=== PATIENT | female | born 1975 | race Caucasian/White ===

== ENCOUNTER 2016-10-30 00:54 | Emergency (ER) | payer SELFPAY | END 2016-10-30 03:35 | disposition left against medical advice (07) | LOC: ER1 00:54 | DX: Z53.21 Procedure and treatment not carried out due to patient leaving prior to being seen by health care provider (principal) ==

== ENCOUNTER 2020-12-10 16:11 | Emergency (ER) | payer OTHER ==
[~2020-12-10 16:11] MED LIST: BENTYL 20MG TAB20 MG PO; IBUPROFEN600 MG PO; KEFLEX500 MG PO; PREDNISONE 20 M20 MG PO; ROBITUSSIN AC480 ML PO; VENTOLIN HFA 66.7 GM INH; ZOFRAN4 MG PO
[2020-12-10 17:19] LABS: HEMOGLOBIN 15.5 gm/dl (12.3-15.3); RED BLOOD COUNT 5.13 M/UL (4.00-5.10); WHITE BLOOD COUNT 6.9 K/UL (4.5-11.0)
[2020-12-10 17:44] LABS: BUN/CREATININE RATIO 30 (0-10)
[2020-12-10] MEDS ORDERED: PROTONIX40 MG PO (19:00)
[2020-12-10] MEDS ORDERED: IBUPROFEN800 MG PO (19:00)
== END 2020-12-10 19:11 | disposition home or self-care (01) ==
LOC: ER1 16:11
PROVIDERS: Preventive Medicine Occupational Medicine
DX: R10.9 Unspecified abdominal pain (principal); R11.0 Nausea; F17.210 Nicotine dependence, cigarettes, uncomplicated
CPT/HCPCS: 80053; 81001; 83690; 85025; 85652; 86140; 87086; 96374; 99284; J1885; J7030